=== PATIENT | female | born 1970 | race Caucasian/White ===

== ENCOUNTER 2019-01-30 16:41 | Inpatient (IN) | payer BC, OTHER | END 2019-01-31 17:15 | disposition home or self-care (01) | LOC: ICU 01-31 05:53 → ER FS 16:41 → ICU 21:33 ==

== ENCOUNTER → 2019-02-06 | Outpatient (CLI) | payer BC ==
[~2019-02-06] VITALS: Ht 152 cm; Wt 99.0 kg
[~2019-02-06] MED LIST: AMLO5TAB9 PO; ASPI-983 PO; ATOR40TA PO; CATHETER FLUSH 10 ML SYR IV PRN; HYDR12.5 PO; IBUP-30 PO; Nitroglycerin SL; POTA10TA10 PO; REGADENOSON 0.4 MG/5 ML SYR (LEXISCAN) IV ONE
[2019-02-06 09:09] VITALS: BP 151/95
--- NOTE | 2019-02-06 15:45 | Cardiology Stress Test Report ---
Stress Test Report Type of NM Stress Test: Test Type: LEXISCAN 0.4MG/5ML Date of Procedure/Referring: Date of Procedure: Feb 06, 2019 PCP Saray Kim MD Admitting Physician SelfWesley MD Indications: Chest pain Baseline Heart Rate: 76 Baseline Blood Pressure: Blood Pressure Systolic: 151 Blood Pressure Diastolic: 95 Baseline EKG: Baseline EKG: sinus rhythm Summary & Conclusion: Summary: The patient was brought to the stress lab after informed consent was taken. Stress test was performed according to the Lexiscan protocol. 0.4 mg of IV Lexiscan was given. Low-grade exercise was performed. Baseline EKG showed sinus rhythm at 76 BPM. Initial blood pressure was 151/95 mmHg. Maximum heart rate was 117 bpm and blood pressure 156/98 mmHg. Patient did not have any chest pain, arrhythmias or ST segment changes during the stress test. 10.1 mCi of Myoview were given for rest imaging and 32.1 mCi of Myoview given for stress imaging. Transient ischemic dilatation score 1.11, EF 69 percent. Normal wall motion. Normal myocardial perfusion imaging during rest and stress. Conclusion: Pharmacological stress test was negative for ischemia. Normal LV function with no wall motion abnormalities. Normal myocardial perfusion imaging during rest and stress. Saray KIM MD Feb 06, 2019 15:45
== END ==
LOC: CARD 07:16
PROVIDERS: ATTEND Internal Medicine Interventional Cardiology
DX: R07.9 Chest pain, unspecified (principal)
CPT/HCPCS: 78452; 93017

== ENCOUNTER → 2020-04-22 | Outpatient (CLI) | payer BC ==
[~2020-04-22] MED LIST changes: +AMLO-250 PO; -AMLO5TAB9 PO; +ASPI-1238 PO; -ASPI-983 PO; -CATHETER FLUSH 10 ML SYR IV PRN; -REGADENOSON 0.4 MG/5 ML SYR (LEXISCAN) IV ONE
--- NOTE | 2020-04-22 11:42 | Diagnostic Imaging Report ---
INDICATION: Right knee pain. COMPARISON: None available. TECHNIQUE: Three radiographs of the right knee dated April 22, 2020. FINDINGS: No acute fracture or dislocation. No destructive osseous process. Severe medial joint space narrowing with associated moderate osteophytosis. Mild lateral joint space narrowing. Mild osteophytosis of the patellofemoral joint. No significant joint effusion. No suspicious radiopaque foreign body. 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 Dictated by: Dictated on workstation # [id number]
== END ==
LOC: RAD FS 10:54
PROVIDERS: ATTEND Nurse Practitioner
DX: M17.11 Unilateral primary osteoarthritis, right knee (principal)
CPT/HCPCS: 73562

== ENCOUNTER → 2021-06-07 | Outpatient (CLI) | payer BC, OTHER ==
--- NOTE | 2021-06-07 13:39 | Diagnostic Imaging Report ---
PROCEDURE: CT urinary tract, rule out kidney stone. TECHNIQUE: Multiple contiguous axial images were obtained through the abdomen and pelvis without the use of intravenous contrast. Auto Exposure Controls were utilized during the CT exam to meet ALARA standards for radiation dose reduction. INDICATION: Right abdominal pain. FINDINGS: Unenhanced images of liver and spleen reveal no focal abnormality. Gallbladder is surgically absent. Patient has undergone Lap-Band procedure with device encircling the region of gastroesophageal junction. No pancreatic or adrenal gland abnormality is identified. Unenhanced images of the kidneys are unremarkable. There is no evidence of urinary tract calculus. The appendix has a normal appearance. There is no evidence of free fluid within the abdomen or pelvis. Note is made of an approximately 3.2 cm cyst in the left ovary. Unopacified bladder is unremarkable. There is mild aortoiliac atherosclerotic calcification. IMPRESSION: No acute abdominal or pelvic abnormality is identified. Patient is post cholecystectomy and Lap-Band procedure without bowel obstruction, free fluid or inflammation. There is no evidence of obstructive uropathy. Dictated by: Dictated on workstation # [id number]
== END ==
LOC: RAD FS 13:00
PROVIDERS: ATTEND Family Medicine
DX: R10.9 Unspecified abdominal pain (principal); Z90.49 Acquired absence of other specified parts of digestive tract
CPT/HCPCS: 74176

== ENCOUNTER → 2021-11-25 | Outpatient (CLI) | payer BC, OTHER | LOC: CARD 09:42 | PROVIDERS: ATTEND Family Medicine | DX: I35.0 Nonrheumatic aortic (valve) stenosis (principal); I35.8 Other nonrheumatic aortic valve disorders | CPT/HCPCS: 93306 ==

== ENCOUNTER → 2022-02-20 | Outpatient (CLI) | payer BC, OTHER ==
[~2022-02-20] MED LIST changes: +GADOTERATE 0.5 MMOL/ML (CLARISCAN) 20 ML VIAL IV ONE
--- NOTE | 2022-02-20 10:22 | Diagnostic Imaging Report ---
CLINICAL INDICATION: Patient states she lost hearing in her left ear and had vertigo which started in August but currently the patient has regained her hearing loss. EXAM: MRI of the brain/IACs performed without and with 20 cc of Clariscan IV contrast. Sequences include sagittal T1 localizer, axial T2, axial flair, axial T1, coronal gradient echo, DWI, ADC map, axial T1 thin, axial T2 thin, coronal T1 thin, axial T2 3D FIESTA, axial T1 post contrast whole brain, coronal T1 fat-sat post IV contrast whole brain, sagittal T1 post IV contrast whole brain, axial T1 post IV contrast thin fat sat, and coronal T1 post IV contrast thin. COMPARISONS: None. FINDINGS: TEMPORAL BONE STRUCTURES: Unremarkable. The internal auditory canal, otic capsule, middle ear, and temporal bone structures have normal anatomic appearance and are unremarkable. There is no abnormal fluid in the mastoid air cells seen. The visualized nerves VII and VIII within the IACs bilaterally and cisternal portions have normal appearance. CISTERNAL STRUCTURES: There is no cisternal mass seen. The remainder of the visualized cranial nerves in the basal cistern regions is unremarkable. BRAIN PARENCHYMA: There are multiple focal and patchy areas of high T2 signal white matter changes involving both cerebral hemispheres, likely representing chronic small vessel ischemic disease. There is normal agee/white matter distinction. There is no significant architectural distortion, midline shift, or herniation. There is no abnormal IV contrast enhancement or diffusion restriction signal changes. VENTRICLES: Unremarkable with no hydrocephalus. VISUALIZED INTRACRANIAL VESSELS: Unremarkable as visualized. SKULL/ ORBITS: Unremarkable. VISUALIZED PARANASAL SINUSES: Unremarkable. IMPRESSION: 1: Unremarkable MRI of the internal auditory canals, temporal bone structures, and basal cisterns. 2: Unremarkable MRI of the brain for age with mild chronic small vessel ischemic disease. Dictated by: Dictated on workstation # [id number]
== END ==
LOC: RAD 08:45
PROVIDERS: ATTEND Otolaryngology
DX: I67.82 Cerebral ischemia (principal)
CPT/HCPCS: 70553